=== PATIENT | female | born 1955 | race Caucasian/White ===

== ENCOUNTER → 2021-04-20 09:08 | Outpatient (CLI) | payer MEDICARE, SELFPAY ==
--- NOTE | 2021-04-20 09:11 | DI.CT.S_ITS ---
PROCEDURE: CT CHEST ABD PEL W CON INDICATIONS: Metastatic workup for breast cancer with positive nodes TECHNIQUE: After the administration of oral and intravenous contrast, axial sections acquired from the supraclavicular neck to the pubic symphysis. Coronal and sagittal reformats were performed. For radiation dose reduction, the following was used: automated exposure control, adjustment of mA and/or kV according to patient size. COMPARISON: [facility], US, US BIOPSY BREAST 1ST LESION LEFT, 04/05/2021, 13:44. [facility], US, US BIOPSY AXILLA, 04/05/2021, 13:44. FINDINGS: Image quality: Excellent. CHEST: Lower Neck: No enlarged lymph nodes. Thyroid: Within normal limits. Axillae: Enlarged left axillary node with a short axis diameter of 1 cm, (2/15). There is a biopsy clip within this node. A slightly inferior there is a prominent lymph node measuring 0.8 cm. No enlarged right axillary nodes. Chest Wall: Bilateral breast implants. Abnormal medial contour of the right implant consistent with rupture. Peripheral implant calcifications. Lungs and Airways: Tiny mucous plug in the right upper lobe. A few calcified granuloma. Pleura: No pneumothorax or pleural effusions. Heart: Heart size is within normal limits. Mild LAD coronary artery calcifications. No pericardial effusion. Thoracic Vessels: The aorta and pulmonary arteries demonstrate normal size. Mediastinum and Helen: No enlarged lymph nodes. Esophagus: No wall thickening. No hiatal hernia. ABDOMEN: Liver: Unremarkable. Gallbladder: Unremarkable. Biliary ducts: CBD is prominent measuring 0.9 cm but tapers distally. No intrahepatic biliary ductal dilatation. Pancreas: Unremarkable. Spleen: Unremarkable. Adrenal Glands: Unremarkable. Kidneys and Ureters: Unremarkable. Stomach and Bowel: Stomach, small bowel loops, and colon are unremarkable. Small duodenal diverticulum. Peritoneum: Irregular-shaped low-density collection anterior to the left psoas muscle measuring 16 Hounsfield units, (2/98). This spans an area of approximately 6.8 cm in diameter. Ventral Wall: No hernia. Abdominal Nodes: No retroperitoneal or mesenteric adenopathy by size criteria. Vessels: Aorta and inferior vena cava are normal in size. Prominent pelvic veins. PELVIS: Pelvic Organs: Anteverted uterus. Bladder: Unremarkable. Pelvic Nodes: No enlarged lymph nodes. Miscellaneous: No inguinal hernias are seen. Bones: Mild DDD. No suspicious lesion. IMPRESSION: 1. Enlarged left axillary lymph nodes x2. Biopsy-proven metastatic breast cancer in 1 of the nodes. 2. Abnormal area of fluid density in the left retroperitoneum anterior to the psoas muscle. This could represent a lymphocele. Less likely retroperitoneal fluid collection such as hematoma or confluent metastatic adenopathy or low-density metastasis. -This could be further evaluated with MRI of the abdomen and pelvis with IV contrast or PET/CT to exclude malignant process. 3. Prominent pelvic veins. This finding could be seen in multiparous women and/or pelvic congestion syndrome. 4. Ruptured right breast implant. Dictated by: Henri Daniel M.D. on 04/20/2021 at 11:59 Approved by: Henri Daniel M.D. on 04/20/2021 at 12:25
--- NOTE | 2021-04-20 09:11 | DI.NM.S_ITS ---
PROCEDURE: NM BONE SCAN WHOLE BODY RADIOPHARMACEUTICAL: 22.8 mCi Tc-99m MDP IV. INDICATIONS: breast cancer staging TECHNIQUE: Delayed whole-body scintigrams were obtained approximately 3-4 hours after intravenous injection of radiotracer. Anterior and posterior views were acquired from vertex to feet. Additional left and right oblique views of the thoracic cage were obtained. COMPARISON: [facility], CT, CT CHEST ABD PEL W CON, 04/20/2021, 10:54. FINDINGS: No lesions are identified in skull, sternum, clavicles, scapulae, ribs, bony pelvis, and visualized shafts of the long bones. Mild scoliosis. There are foci of increased uptake in the lumbar spine with distribution indistinguishable from degenerative disc and facet disease; early metastasis to spine could be obscured by degenerative changes. There are foci of increased periarticular activity involving shoulders, right greater than left, hips and SI joints, compatible with degenerative/arthritic changes. IMPRESSION: 1. No scintigraphic findings to suggest osseous metastasis. 2. Degenerative/arthritic changes as described. If clinically indicated, radiographic correlation would be helpful. Dictated by: Sofy Wright M.D. on 04/20/2021 at 17:17 Approved by: Sofy Wright M.D. on 04/20/2021 at 17:20
[2021-04-20 10:21] LABS: BUN Creatinine Ratio 23.3 (6-22); Blood Urea Nitrogen 17 mg/dL (7-17); Estimated Glomerular Filt Rate > 60.0 mL/min (>60)
== END ==
PROVIDERS: PCP Nurse Practitioner Family; Referring Provider Specialist; Visit Provider Specialist
DX: C50.912 Malignant neoplasm of unspecified site of left female breast (principal); C77.3 Secondary and unspecified malignant neoplasm of axilla and upper limb lymph nodes; Z01.812 Encounter for preprocedural laboratory examination; T85.43XA Leakage of breast prosthesis and implant, initial encounter
CPT/HCPCS: 36415; 71260; 74177; 78306; 82565; 84520; A9503

== ENCOUNTER → 2021-04-25 11:42 | Outpatient (CLI) | payer MEDICARE, SELFPAY ==
[2021-04-25 12:46] LABS: COVID19 -Nasal RAPID Negative (Negative)
== END ==
PROVIDERS: PCP Nurse Practitioner Family; Visit Provider Specialist
DX: Z01.812 Encounter for preprocedural laboratory examination (principal); Z20.822 Contact with and (suspected) exposure to COVID-19
CPT/HCPCS: 87635

== ENCOUNTER 2021-04-26 14:02 | Day surgery (SDC) | payer MEDICARE, SELFPAY ==
[2021-04-25 11:55] VITALS: BMI 18.5
--- NOTE | 2021-04-26 | DI.RAD.S_ITS ---
PROCEDURE: XR CHEST 1V INDICATIONS: POST-OP PORT-A-CATH PLACEMENT TECHNIQUE: One view of the chest was acquired. COMPARISON: None. FINDINGS: Surgical changes and devices: Right chest wall Port-A-Cath tip is in SVC. Bilateral breast implants are noted. Lungs and pleura: Lungs are clear. No pleural effusions or pneumothorax. Mediastinum: Mediastinal contours appear normal. Heart size is normal. Bones and chest wall: No suspicious bony lesions. Overlying soft tissues appear unremarkable. IMPRESSION: pathology. Right chest wall Port-A-Cath tip is in SVC. No acute cardiopulmonary Dictated by: Fritz Daly M.D. on 04/26/2021 at 18:10 Approved by: Fritz Daly M.D. on 04/26/2021 at 18:12
[2021-04-26 14:31] VITALS: BP 138/87; PULSE 70; RESP 16; TEMP 36.6; O2SAT 100; BMI 18.5
[2021-04-26] MEDS: LACTATED RINGERS 1,000 ML 42 ML IV (14:47)
[2021-04-26] MEDS: SCOPOLAMINE 1 PATCH TOP (15:02)
[2021-04-26] MEDS: ACETAMINOPHEN 325 MG TABLET 975 MG PO (15:03)
[2021-04-26] MEDS: GABAPENTIN 300 MG CAPSULE PO (15:04)
--- NOTE | 2021-04-26 15:57 | P.OP.PRE_ITS ---
Pre-operative Note COVID-19 COVID-19 status: Negative Result date/Date tested (Pos, Neg/Pending): 04/25/21 Interval Note History & Physical reviewed/Exam performed by Physician: Yes Changes to H&P: Yes H&P completed within 30 days and has changed as indicated here:: I have reviewed her MRI and the results of her pathology. She is about to undergo an extensive period of chemotherapy because she is HER2 Jess positive. MRI suggest possible 6 cm diameter mass in her left breast. Given the positive nodes already successfully biopsied in her left axilla neoadjuvant therapy would be standard of care. That is been discussed with her by her oncologist. She is here to place a Port-A-Cath. I have discussed the procedure with her. I discussed the nature of Port-A-Cath. I discussed placement neither under her collarbone her in her neck. Risks of bleeding, infection (which is an ongoing risk each time it is used) lung collapse clotting of the vein arm swelling and pulmonary embolism were all discussed with her. She appears to understand and wishes to proceed. I also advised her that because of the complexity of the issues involved with her (large tumor, skin involvement, ruptured pre prepped oral implants and the likelihood of tumor growing along the implant as well as tiny amounts of breast tissue) I think it would be best for her to be treated by a breast cancer fellowship trained surgeon. I offered to send her to a known associate but she has the knowledge of a surgeon at [facility] and would like to be referred there. She will obtain the name and either I or her oncologist can refer her there.
[2021-04-26] MEDS: CLINDAMYCIN 900 MG/50 ML PIGGYBACK 50 MG IV (16:21)
--- NOTE | 2021-04-26 16:44 | SUR.OPER ---
Supine on padded OR bed, head on gel donut, arms padded and tucked at sides, legs uncrossed, safety belt at thigh, tape over blanket over lower legs .
[2021-04-26] MEDS: HEPARIN 5,000 UNIT, SODIUM CHLORIDE 0.9% 50 ML IV (16:49)
[2021-04-26] MEDS: LIDOCAINE 2% INJ MDV 20 ML INJ (16:51)
[2021-04-26 17:22] VITALS: BP 130/81; PULSE 72; RESP 14; TEMP 36.2; O2SAT 96
[2021-04-26 17:28] VITALS: BP 127/69; PULSE 62; RESP 20; O2SAT 98
[2021-04-26 17:32] VITALS: BP 145/56; PULSE 60; RESP 16; O2SAT 98
--- NOTE | 2021-04-26 17:42 | PM.OP.1 ---
Operative Date/Time/Diagnoses Date of procedure: 04/26/21 Time of procedure: 17:42 Pre-op diagnosis: Metastatic breast cancer her 2 Jess positive Post-op diagnosis: same Procedure & Clinicians Procedure: Placement of right internal jugular Port-A-Cath Same procedure as scheduled: Yes Indications: Patient is a woman about to receive neoadjuvant treatment for a her 2 Jess positive metastatic breast cancer. I was asked to place a port for IV access for chemotherapy. Surgeon: Cal Amaro Click Yes if Unassisted: Yes Anesthesia Type: General Operative Notes Findings: Tip in the SVC. No evidence of pneumothorax. Closure Type: primary Specimen(s): none sent Prosthetic devices, grafts, tissues, transplants, or devices: Slim port Estimated Blood Loss (mL): 5 Blood products transfused: none Procedure in detail: Patient was placed supine on the operating room table underwent general LMA anesthesia. She was prepped and draped in the usual fashion. Breast cancers on the left and I have chosen to place the port in the right. A 22 gauge needle was used to insert into the internal jugular between the sternal and clavicular heads of the sternocleidomastoid. I then made an incision in this spot and attempted to insert the larger needle but was unable to do so. Both needles were removed and I used ultrasound to locate and reinsert the larger needle into the internal jugular vein. There was good blood return. Guidewire was passed the needle removed. Using fluoroscopy the wire appeared to be going in the appropriate anatomic location. Local anesthetic was achieved on the chest wall in the infraclavicular space. Transverse incision was made and carried through the subcu fat to the muscle. A pocket was created inferior to the incision. The port was attached to the catheter and the port was placed in the pocket. The catheter was passed using the enclosed metal dissector from the chest incision up to the neck incision. I then estimated the length of the catheter using a fluoroscopy. The catheter was transected. Dilator and introducer were then passed over the guidewire with fluoroscopic visualization. The dilator and guidewire were removed leaving the introducer in place. The catheter was passed through it. The introducer was peeled away leaving the catheter in good position in the SVC. The port was aspirated and flushed with heparinized saline. There was no difficulty doing either. The port was fixed to the chest wall with interrupted 2 0 silk sutures. The subQ was closed in the chest wall incision with a 3-0 Vicryl and skin was closed a running 4-0 Vicryl subcuticular stitch. The wound at the neck was closed with interrupted subcuticular stitches of 4-0 Vicryl. Mastisol and Steri-Strips were applied. Dressings were applied. The patient was awakened extubated taken recovery room good condition. Postprocedure chest x-ray shows the tip of the catheter in the SVC and no evidence of a pneumothorax. Complications: none Post-operative Condition: stable Disposition: PACU
[2021-04-26 17:44] VITALS: BP 137/65; PULSE 54; RESP 18; TEMP 36.6; O2SAT 100
[2021-04-26 18:08] VITALS: BP 141/78; PULSE 51; RESP 16; TEMP 36.7; O2SAT 100
[2021-04-26] MEDS: OXYCODONE IR 5 MG TABLET PO (18:23)
--- NOTE | 2021-04-26 19:19 | SUR.PHASEII ---
Late entry: Pt medicated with oxycodone for pain after applesauce tolerated. Dressing remained c/d/i. Assisted to BR, steady on feet. Left unit in stable condition.
--- NOTE | 2021-04-26 19:20 | SUR.PHASEI ---
Late entry: xray done, read by Dr. Amaro, he also spoke to pt at bedside. Pt denied pain at this time and denied need for pain meds. To OPD stable.
--- NOTE | 2021-04-26 19:23 | SUR.PHASEII ---
Pt brought to car, d/c instructions discussed with both pt and her , both voiced an understanding.
== END 2021-04-26 18:30 | disposition home or self-care (01) ==
PROVIDERS: PCP Nurse Practitioner Family; Referring Provider Specialist; Visit Provider Specialist
PROC: (CPT 36571; principal; 2021-04-26 15:45)
DX: Z45.2 Encounter for adjustment and management of vascular access device (principal); C50.912 Malignant neoplasm of unspecified site of left female breast; C77.9 Secondary and unspecified malignant neoplasm of lymph node, unspecified; Z17.0 Estrogen receptor positive status [ER+]; Z20.822 Contact with and (suspected) exposure to COVID-19
CPT/HCPCS: 36571; 36561; 71045; C1788; J1100; J1644; J2250; J2405; J2704

== ENCOUNTER 2021-04-29 11:54 | Inpatient (IN) | payer MEDICARE, SELFPAY ==
[2021-04-29] VITALS (10 sets, daily range): BP systolic 134–160; BP diastolic 69–93; PULSE 74–95; RESP 16–20; TEMP 36.3–37.1; O2SAT 93–100; BMI 19.1; BMI 18.7
--- NOTE | 2021-04-29 12:01 | DI.RAD.S_ITS ---
PROCEDURE: XR CHEST 2V INDICATIONS: Short of breath after R sided port placed 3 days ago TECHNIQUE: 2 views of the chest were acquired. COMPARISON: [facility], CT, CT CHEST ABD PEL W CON, 04/20/2021, 10:54. [facility], CR, XR CHEST 1V, 04/26/2021, 17:26. FINDINGS: Surgical changes and devices: Calcified mammoplasty implants are seen. There is a stable right-sided chest port. Lungs and pleura: There is a small to moderate right-sided pneumothorax, with a maximum pleural distance of 1.9 cm. No left-sided pneumothorax. The lungs otherwise appear clear. Mediastinum: Mediastinal contours are normal. Heart size is normal. Bones and chest wall: No suspicious bony abnormalities. Soft tissues appear unremarkable. IMPRESSION: Small to moderate right-sided pneumothorax. Note: Critical finding of pneumothorax discussed by telephone with Dr. Gann at 11:32 a.m. on April 29, 2021. Dictated by: Colton Self M.D. on 04/29/2021 at 11:30 Approved by: Colton Self M.D. on 04/29/2021 at 11:35
--- NOTE | 2021-04-29 12:51 | ED_ITS ---
HPI - General Adult General Chief complaint: Shortness of Breath/Dyspnea Stated complaint: Chemo Port, SOB Time Seen by Provider: 04/29/21 12:01 Source: patient Mode of arrival: Ambulatory Limitations: no limitations History of Present Illness HPI narrative: Patient is a 65-year-old female. Recent diagnosis of breast cancer. Had a port placed on Saturday. She states since that time she has had progressively worsening shortness of breath. Also some right-sided discomfort. She is scheduled to start chemotherapy next week. No prior underlying lung issues. Related Data Home Medications Medication Instructions Recorded Confirmed ascorbate calcium (vitamin C) 500 1,000 mg PO DAILY 04/13/21 04/26/21 mg tablet glucosamine HCl 500 mg tablet 1,000 mg PO DAILY 04/13/21 04/26/21 vitamin B complex 1 tab PO DAILY 04/13/21 04/26/21 alprazolam 0.25 mg tablet (Xanax) 0.25 mg PO BEDTIME PRN 04/18/21 04/26/21 trazodone 50 mg tablet 25 mg PO BEDTIME PRN 04/18/21 04/26/21 Previous Rx's Medication Instructions Recorded oxycodone 5 mg tablet 5 mg PO Q4H PRN #10 tab 04/26/21 Allergies Allergy/AdvReac Type Severity Reaction Status Date / Time Penicillins [PENICILLINS] Allergy Severe ANAPHYLAXIS Verified 04/29/21 12:02 Sulfa (Sulfonamide Allergy Intermediate RASH Verified 04/29/21 12:02 Antibiotics) [SULFA (SULFONAMIDE ANTIBIOTICS)] piroxicam Allergy Unknown FACIAL Verified 04/29/21 12:57 SWELLING, RASH, SKIN SLOUGHING OF HANDS&FEET Review of Systems Constitutional Constitutional: Denies fever(s) ENT Ears, Nose, Mouth, and Throat: Reports system reviewed and no additional comp laints, except as documented Cardiovascular Cardiovascular: Reports as per HPI and Reports system reviewed and no additional complaints, except as documented Respiratory Respiratory: Reports as per HPI and Reports system reviewed and no additional complaints, except as documented Gastrointestinal Gastrointestinal: Reports system reviewed and no additional complaints, except as documented Musculoskeletal Musculoskeletal: Reports system reviewed and no additional complaints, except as documented Integumentary/Breasts Skin/Breast: Reports system reviewed and no additional complaints, except as documented Neurologic Neurologic: Reports system reviewed and no additional complaints, except as documented Endocrine Endocrine: Reports system reviewed and no additional complaints, except as documented Hematologic/Lymphatic On Anticoagulants: No Allergic/Immunologic Allergic/Immunologic: Reports system reviewed and no additional complaints, except as documented Patient History Medical History Primary cancer of left breast with stage 2 lali metastasis per [place] [employer] on Cancer 7th edition (N2) Surgical History (Updated 04/25/21 @ 12:48 by Rafiq Dejesus MD) H/O section History of bilateral breast implants Hx of left breast biopsy (04/05/21) Status post delivery Family History (Updated 04/13/21 @ 16:00 by Jackeline Shepherd MA) Family/Other Cancer Social History marital status: number of children: 2 household members: spouse and children Smoking Status: Never smoker alcohol intake: current Smoking Status: Never smoker alcohol intake frequency: 0-2 drinks per day Substance Use Type: other Exam Initial Vital Signs Initial Vital Signs: Vital Signs Temperature 98.1 F 04/29/21 12:02 Pulse Rate 95 H 04/29/21 12:02 Respiratory Rate 16 04/29/21 12:02 Blood Pressure 154/82 H 04/29/21 12:02 Pulse Oximetry 98 04/29/21 12:02 Const General: cooperative and comfortable HENMT Head: normal to inspection and normocephalic Eyes General: appearance normal, both eyes and all related structures Neck Neck: normal visual inspection Chest Other: Surgical incisions right upper chest consistent with stated history of recent port placed Resp Effort & Inspection: normal respiratory effort, not labored and tachypneic Auscultation: diminished lung sounds on the right Cardio Rate: regular rate Rhythm: regular rhythm GI Inspection: normal to inspection Skin Other: Patient does have a macular papular rash systemically that she states started within the past 24 hours Neuro General: patient alert, patient awake, patient oriented x3 and moves all extremities Extrem General: normal to inspection and capillary refill normal Psych Appearance: grossly normal and well kempt Procedures Chest Tube Chest Tube 1: Chest Tube Location: right and anterior axillary line Chest Tube Prep: Yes betadine prep and sterile drapes applied Local Anesthetic: lidocaine 2% Amount of anesthesia used (mL): 10 Incision Made With: #11 blade Post Procedure: sutured to skin and sterile dressing applied Tube Drainage: none Post Procedure CXR?: Yes Patient Tolerated Procedure: Yes Progress: Harriett pneumothorax pigtail catheter Course Orders Ordered: ED Orders 04/29/21 12:01 XR chest 2V Stat 04/29/21 12:40 Basic Metabolic Panel Stat Complete Blood Count AUTO DIFF Stat 04/29/21 12:50 COVID19 - ADMIT ([employer] swab/PCR) Stat 04/29/21 13:16 XR chest 1V Stat Discontinued Medications Lidocaine HCl (Lidocaine 2% Inj Mdv) 1 ml SUBCUT NOW ONE Stop: 04/29/21 12:53 Last Admin: 04/29/21 13:32 Dose: 1 ml Documented by: LUIS EDUARDO Morphine Sulfate (Morphine 4 Mg/Ml Inj) 4 mg IV NOW ONE Stop: 04/29/21 13:34 Last Admin: 04/29/21 13:38 Dose: 4 mg Documented by: LUIS EDUARDO Vital Signs Vital signs: Vital Signs - 8 hr 04/29/21 12:02 04/29/21 13:00 Temperature 98.1 F Pulse Rate 95 H 80 Respiratory Rate 16 Blood Pressure 154/82 H 136/75 Pulse Oximetry 98 97 Medical Decision Making Medical Records Medical records reviewed: Yes I reviewed the patient's medical records. Lab Data Lab results reviewed: Yes I reviewed the patient's lab results. Result diagrams: 04/29/21 12:40 04/29/21 12:40 Labs: Lab Results 04/29/21 04/29/21 04/29/21 Range/Units 12:40 12:40 12:50 WBC 10.8 (4.5-11.0) X10^3/uL RBC 4.51 (4.0-5.2) X10^6/uL Hgb 14.1 (12.0-16.0) g/dL Hct 42.9 (36-46) % MCV 95.2 (80-100) fL MCH 31.2 (26-34) PG MCHC 32.7 (30-36) % RDW 13.1 (11.6-14.8) % Plt Count 297 (150-400) X10^3/uL Neut % (Auto) 79.3 H (50-75) % Lymph % (Auto) 10.2 L (25-40) % Piatt % (Auto) 9.3 (3-14) % Eos % (Auto) 0.8 L (2-4) % Baso % (Auto) 0.4 (0-2) % Neut # (Auto) 8600 H (5483-8333) /uL Lymph # (Auto) 1100 (7147-2290) /uL Piatt # (Auto) 1000 H (0-900) /uL Eos # (Auto) 100 (0-450) /uL Baso # (Auto) 0 (0-100) /uL Sodium 138 (137-145) mmol/L Potassium 4.0 (3.4-5.1) mmol/L Chloride 103 (98-107) mmol/L Carbon Dioxide 29 (22-32) mmol/L BUN 22 H (7-17) mg/dL Creatinine 0.71 (0.52-1.04) mg/dL Estimated GFR > 60.0 (>60) mL/min BUN/Creatinine Ratio 31.0 H (6-22) Glucose 88 (80-110) mg/dL Calcium 9.9 (8.4-10.2) mg/dL SARS-CoV-2 (PCR) Negative (Negative) Imaging Data Chest x-ray: Radiologist's Impression: [address] [address] XRay Report Signed Patient: Princess Kumar MR#: [id number] : 1955 Acct:[id number] Age/Sex: 65 / F Date of Service: 04/29/21 Loc: Accession Number: [id number] ?? Procedure: XR chest 2V Ordering Provider: Chriss Gann D.O. PROCEDURE:? XR CHEST 2V ? INDICATIONS:? Short of breath after R sided port placed 3 days ago ? TECHNIQUE:? 2 views of the chest were acquired.? ? COMPARISON:? [facility], CT, CT CHEST ABD PEL W CON, 04/20/2021, 10:54.? [facility], CR, XR CHEST 1V, 04/26/2021, 17:26. ? FINDINGS:? ? Surgical changes and devices:? Calcified mammoplasty implants are seen.? There is a stable right-sided chest port. ? Lungs and pleura:? There is a small to moderate right-sided pneumothorax, with a maximum pleural distance of 1.9 cm. ? No left-sided pneumothorax.? The lungs otherwise appear clear.? ? Mediastinum:? Mediastinal contours are normal.? Heart size is normal.? ? Bones and chest wall:? No suspicious bony abnormalities.? Soft tissues appear unremarkable.? ? ? IMPRESSION:? Small to moderate right-sided pneumothorax. ? Note:? Critical finding of pneumothorax discussed by telephone with Dr. Gann at 11:32 a.m. on April 29, 2021.? ? ? Dictated by: Cotlon Self M.D. on 04/29/2021 at 11:30 ? ? Approved by: Colton Self M.D. on 04/29/2021 at 11:35?? Post chest tube chest x-ray: Radiologist's Impression: [address] [address] XRay Report Signed Patient: Princess Kumar MR#: [id number] : 1955 Acct:[id number] Age/Sex: 65 / F Date of Service: 04/29/21 Loc: ED Accession Number: [id number] ?? Procedure: XR chest 1V Ordering Provider: Chriss Gann D.O. PROCEDURE:? XR CHEST 1V ? INDICATIONS:? post chest tube placement ? TECHNIQUE:? One view of the chest was acquired.? ? COMPARISON:? [facility], , XR CHEST 2V, 04/29/2021, 11:57. ? FINDINGS:? ? Surgical changes and devices:? Right chest wall port.? Right chest tube is well position. ? Lungs and pleura:? Lungs are clear.? No pleural effusions or pneumothorax.? Previously seen pneumothorax has resolved.? Right basilar atelectasis. ? Mediastinum:? Mediastinal contours appear normal.? Heart size is normal.? ? Bones and chest wall:? No suspicious bony lesions.? Overlying soft tissues appear unremarkable.? ? IMPRESSION:? Chest tube appears well positioned.? Previously seen pneumothorax has resolved. ? ? Dictated by: Rikki Lloyd M.D. on 04/29/2021 at 13:36 ? ? Approved by: Rikki Lloyd M.D. on 04/29/2021 at 13:37?? MDM Narrative Medical decision making narrative: Patient not in respiratory distress but was tachypneic upon arrival. Not hypoxic. Initial chest x-ray shows right-sided pneumothorax most likely from the port placement a couple days ago. She did give consent and a right-sided harriett pneumothorax catheter was placed with resolution of the pneumothorax on repeat chest x-ray. Discussed the case with Dr. Miranda on-call for General surgery who will admit for further evaluation treatment. Discussed the admission with the patient. She expressed understanding and agreement. Discharge Plan Departure Patient Disposition: Admitted As Inpatient Clinical Impression: Pneumothorax Admit Date/Time: 04/29/21 14:03 Admit Provider: Chiqui Miranda
--- NOTE | 2021-04-29 13:16 | DI.RAD.S_ITS ---
PROCEDURE: XR CHEST 1V INDICATIONS: post chest tube placement TECHNIQUE: One view of the chest was acquired. COMPARISON: [facility], , XR CHEST 2V, 04/29/2021, 11:57. FINDINGS: Surgical changes and devices: Right chest wall port. Right chest tube is well position. Lungs and pleura: Lungs are clear. No pleural effusions or pneumothorax. Previously seen pneumothorax has resolved. Right basilar atelectasis. Mediastinum: Mediastinal contours appear normal. Heart size is normal. Bones and chest wall: No suspicious bony lesions. Overlying soft tissues appear unremarkable. IMPRESSION: Chest tube appears well positioned. Previously seen pneumothorax has resolved. Dictated by: Rikki Lloyd M.D. on 04/29/2021 at 13:36 Approved by: Rikki Lloyd M.D. on 04/29/2021 at 13:37
[2021-04-29 13:22] LABS: Add Manual Diff / Slide Review NO; Basophils Absolute Auto 0 /uL (0-100); Basophils Percent Auto 0.4 % (0-2); Eosinophils Absolute Auto 100 /uL (0-450); Eosinophils Percent Auto 0.8 % (2-4); Hematocrit 42.9 % (36-46); Hemoglobin 14.1 g/dL (12.0-16.0); Lymphocytes Absolute Auto 1100 /uL (1100-4500); Lymphocytes Percent Auto 10.2 % (25-40); Mean Corpuscular HGB Conc 32.7 % (30-36); Mean Corpuscular Hemoglobin 31.2 PG (26-34); Mean Corpuscular Volume 95.2 fL (80-100); Monocytes Absolute Auto 1000 /uL (0-900); Monocytes Percent Auto 9.3 % (3-14); Neutrophils Absolute Auto 8600 /uL (1500-7000); Neutrophils Percent Auto 79.3 % (50-75); Platelet Count 297 X10^3/uL (150-400); Red Blood Cell Count 4.51 X10^6/uL (4.0-5.2); Red Cell Distribution Width 13.1 % (11.6-14.8); White Blood Cell Count 10.8 X10^3/uL (4.5-11.0)
[2021-04-29 13:28] LABS: Blood Urea Nitrogen 22 mg/dL (7-17); Calcium 9.9 mg/dL (8.4-10.2); Carbon Dioxide 29 mmol/L (22-32); Chloride 103 mmol/L (98-107); Estimated Glomerular Filt Rate > 60.0 mL/min (>60); Glucose 88 mg/dL (80-110); HEMOLYSIS < 15 (0-50); Sodium 138 mmol/L (137-145)
[2021-04-29] MEDS: LIDOCAINE 2% INJ MDV 1 ML SUBCUT (13:32)
[2021-04-29] MEDS: MORPHINE 4 MG/ML INJ IV (13:38)
[2021-04-29 14:02] LABS: COVID19 - ADMIT (NP swab/PCR) Negative (Negative)
[2021-04-29] MEDS: HYDROMORPHONE 0.5 MG INJ IV (14:55)
[2021-04-29] MEDS: DOCUSATE 100 MG CAPSULE PO ×2 (16:31→21:17)
[2021-04-29] MEDS: HYDROCODONE/ACET 5/325 TABLET 1 TAB PO (16:34)
[2021-04-29] MEDS: ACETAMINOPHEN 325 MG TABLET 650 MG PO (17:56)
[2021-04-29] MEDS: OXYCODONE IR 5 MG TABLET PO (19:05)
[2021-04-29] MEDS: HEPARIN 5,000 UNIT/ML VIAL 5000 UNIT SUBCUT (21:17)
[2021-04-29] MEDS: PANTOPRAZOLE DR 20 MG TABLET PO (21:18)
[2021-04-29] MEDS: OXYCODONE IR 10 MG TABLET PO (23:18)
[2021-04-29] MEDS: ONDANSETRON 4 MG/2 ML INJ IV (23:18)
[2021-04-29] MEDS: SODIUM CHLORIDE 0.9% FLUSH 10 ML IV (23:20)
--- NOTE | 2021-04-30 00:44 | PC.NURSE ---
Addendum entered by Regina Farias R.N. 04/30/21 03:11: Up to bathroom and complains again of 7/10 back pain so medicated with oxycodone. Now also complains of increased itching and agreeable to having MD called. Dr Miranda informed of rash and itchiness, patient states she woke with rash yesterday morning and had it prior to coming to ER. Patient is concerned about taking anything that may interfere with her starting chemo this coming week. See new order for Benadryl. Original Note: Patient is alert and oriented although anxious with many questions. Breath sounds diminished throughout right more than left. Respirations shallow as patient having difficulty taking deep breaths related to complaint of back pain. At time of assessment patient was medicated with oxycodone and discussed need to control pain in order to ensure able to take deep breaths to prevent further complications; is currently asleep. On continuous pulse oximetry and is on RA with sat of 97%. Chest tube dressing intact and tube to low suction with no drainage or leaks noted. HRR but BP elevated at 141/93 and noted to trend high possible related to pain and/or anxiety. Denied nausea. BT present and abdomen is soft. Denied any dysuria, frequency or urgency with urination. Is able to move self in bed but has been needing SBA when getting out of bed related to chest tube and states she feels shaky when up. Diffuse red, raised rash noted on back, chest, abdomen and upper/inner thighs; states she has some itching but declines offer to contact MD for Benadryl order. Wearing bilateral calf SCD's. Fall risk score is moderate but patient has called for assistance appropriately and verbalizes agreement to continue to do so so alarm is not in use.
[2021-04-30] MEDS: OXYCODONE IR 5 MG TABLET 15 MG PO (02:43)
[2021-04-30] MEDS: diphenhydrAMINE 25 MG TABLET 50 MG PO ×3 (03:16→14:12)
[2021-04-30] MEDS: OXYCODONE IR 5 MG TABLET PO (05:47)
--- NOTE | 2021-04-30 06:00 | DI.RAD.S_ITS ---
PROCEDURE: XR CHEST 1V INDICATIONS: Pneumothorax TECHNIQUE: One view of the chest was acquired. COMPARISON: [facility], CR, XR CHEST 2V, 04/29/2021, 11:57. [facility], CR, XR CHEST 1V, 04/26/2021, 17:26. [facility], CR, XR CHEST 1V, 04/29/2021, 13:16. FINDINGS: Surgical changes and devices: A right-sided pleural drain is seen. A stable right-sided chest port is seen. Rim calcified breast implants are seen. Lungs and pleura: No remaining pneumothorax is seen. Low lung volumes are noted. This causes a crowded appearance to the lung markings and limits evaluation. Mediastinum: Mediastinal contours appear normal. Heart size is normal. Bones and chest wall: No suspicious bony lesions. Age-appropriate bony degenerative changes are seen. Overlying soft tissues appear unremarkable. IMPRESSION: Right-sided pleural drain, without a remaining pneumothorax seen on this image. Dictated by: Colton Self M.D. on 04/30/2021 at 7:07 Approved by: Colton Self M.D. on 04/30/2021 at 7:08
[2021-04-30 07:26] VITALS: BP 139/82; PULSE 91; RESP 16; TEMP 36.8; O2SAT 97
[2021-04-30] MEDS: OXYCODONE IR 10 MG TABLET PO (08:54)
[2021-04-30] MEDS: DOCUSATE 100 MG CAPSULE PO (08:54)
[2021-04-30] MEDS: HEPARIN 5,000 UNIT/ML VIAL 5000 UNIT SUBCUT (08:55)
[2021-04-30] MEDS: CALCIUM CARB/VIT D3 500/200 TABLET 1 EACH PO (10:15)
[2021-04-30 10:16] VITALS: O2SAT 93
[2021-04-30] MEDS: SODIUM CHLORIDE 0.9% FLUSH 10 ML IV (10:16)
--- NOTE | 2021-04-30 11:05 | CM.DANOTE ---
DCP: Case received, EMR reviewed and met with patient. Introduced self and role. Was able to obtain information from patient regarding her baseline activity status prior to hospitalization. DCP assessment completed with information currently available. Patient is a 65 year old female who admitted yesterday afternoon to the care of the hospitalist team. PCP: Dr. Saldaña. Payer: confirmed: [employer] [facility]. Patient came to the hospital via private vehicle secondary to having increased shortness of breath. Patient just had port inserted for chemo, secondary to her having stage 2 breast CA. She is to be starting treatment this Saturday. She was diagnosed with a small to moderate right sided pneumothorax. Chest tube was inserted, and now, has resolved. Will need to be checked while tube in place to ensure that her lung inflates. Met with patient in her room. She is pleasant, and resides on [address]. She is independent at her baseline. She indicated, she wants to make sure she is discharged so she can make her chemo appointment. She confirmed that she resides with her spouse, Jimbo, who is supportive. P: DCP to continue to follow for any needs. Patient should be able to go home when she is deemed medically stable. Millie Case RN/Web Site Developer Discharge Planning/Care Management CM Discharge Assessment Start: 04/30/21 11:02 Freq: Status: Active Protocol: Document 04/30/21 11:03 (Rec: 04/30/21 11:04 [id number]) Discharge Planning Assessment Assigned Certified Dental Assistant Millie Case RN/Web Site Developer Advance Directives? Yes Advance Directives on File No History Provided By Patient,Medical Record Prior Living Arrangements House Household Members spouse,children Type of transporation used prior to Drives own vehicle admit Independent with ADL's Yes Is patient alert and oriented? Yes Caregiver for Another No Barriers to Discharge No Comment Patient has good support system with spouse. Discharge Plan Home Transportation Arrangement Spouse Referrals Initiated None needed Whiteboard Updated in Patient Room with Yes name and ext. # of Certified Dental Assistant Review Status In Process Next Review Type Continued Stay Review
--- NOTE | 2021-04-30 12:00 | DI.RAD.S_ITS ---
PROCEDURE: XR CHEST 1V INDICATIONS: chest tube to water seal TECHNIQUE: One view of the chest was acquired. COMPARISON: [facility], CR, XR CHEST 1V, 04/29/2021, 13:16. [facility], CR, XR CHEST 2V, 04/29/2021, 11:57. [facility], CR, XR CHEST 1V, 04/26/2021, 17:26. [facility], CR, XR CHEST 1V, 04/30/2021, 5:53. FINDINGS: Surgical changes and devices: A right-sided pleural drain is seen in place. There is a stable right-sided chest port. Rim calcified breast implants are seen. Lungs and pleura: There is a trivial residual right-sided pneumothorax. The lungs otherwise are unremarkable. Mediastinum: Mediastinal contours appear normal. Heart size is normal. Bones and chest wall: No suspicious bony lesions. Age-appropriate bony degenerative changes are seen. Overlying soft tissues appear unremarkable. IMPRESSION: Trivial residual right-sided pneumothorax. Sided pleural drain seen in place. Dictated by: Colton Self M.D. on 04/30/2021 at 11:33 Approved by: Colton Self M.D. on 04/30/2021 at 11:34
--- NOTE | 2021-04-30 12:40 | P.HP_ITS ---
History of Present Illness History of Present Illness Date Patient Seen: 04/30/21 Time Patient Seen: 12:40 Chief complaint: Chemo Port, SOB Narrative: s/p Right IJ port placement with symptomatic PTX. Seen in ED and Suman tube was placed. C/o SOB and pleuritic pain. Also has a rash on trunk. Patient History Medical History Primary cancer of left breast with stage 2 lali metastasis per [place] Joint Committee on Cancer 7th edition (N2) Surgical History (Updated 04/25/21 @ 12:48 by Rafiq Dejesus MD) H/O section History of bilateral breast implants Hx of left breast biopsy (04/05/21) Status post delivery Family & Social History Family History (Updated 04/13/21 @ 16:00 by Jackeline Shepherd MA) Family/Other Cancer Social History: household members spouse,children Prior Living Arrangements House Safety & Behavioral: Feels Safe in Current Yes Environment Been Physically Hurt or No Threatened By a Person Suicidal Ideation Description None Suicide Plan Description No Plan Tobacco & Substance use: Tobacco type smokeless tobacco Smoking Status Never smoker alcohol intake current alcohol intake frequency 0-2 drinks per day Substance Use Type other Meds Home Medications and Allergies Home Medications Medication Instructions Recorded Confirmed Type glucosamine HCl 500 mg tablet 1,000 mg PO DAILY 04/13/21 04/29/21 History vitamin B complex 1 tab PO DAILY 04/13/21 04/29/21 History alprazolam 0.25 mg tablet (Xanax) 0.25 mg PO BEDTIME PRN 04/18/21 04/29/21 History trazodone 50 mg tablet 25 mg PO BEDTIME PRN 04/18/21 04/29/21 History calcium carb,cit ER 600 mg-vit D3 1 tab PO DAILY 04/29/21 04/29/21 History 12.5 mcg (500 unit) tablet,ext.rel Allergies Allergy/AdvReac Type Severity Reaction Status Date / Time Penicillins [PENICILLINS] Allergy Severe ANAPHYLAXIS Verified 04/29/21 12:02 Sulfa (Sulfonamide Allergy Intermediate RASH Verified 04/29/21 12:02 Antibiotics) [SULFA (SULFONAMIDE ANTIBIOTICS)] piroxicam Allergy Unknown FACIAL Verified 04/29/21 12:57 SWELLING, RASH, SKIN SLOUGHING OF HANDS&FEET Exam Vital Signs (past 8 hours): - 04/30/21 07:26 04/30/21 10:16 Temperature 98.2 F Pulse Rate 91 H Respiratory Rate 16 Blood Pressure 139/82 Pulse Oximetry 97 93 Oxygen Delivery Method Room Air Oxygen Flow Rate 0 Const General: cooperative and comfortable Nutritional Appearance: thin Orientation: alert and oriented x3 HENMT Head: normal to inspection Ears: hearing grossly normal bilaterally Nose: external nose normal Face and sinus: normal facial exam Eyes General: appearance normal, both eyes and all related structures Sclera: sclerae normal Neck Neck: trachea midline Chest Chest: normal inspection of the chest Resp Effort & Inspection: normal respiratory effort and able to speak in complete sentences Auscultation: clear to auscultation bilaterally Cardio Rate: regular rate Rhythm: regular rhythm GI Inspection: normal to inspection Palpation: soft Skin Rashes: rashes noted (trunk and bilateral groin) Trauma: no lacerations or abrasions Neuro General: patient alert and patient oriented x3 Cognition: normal cognition Extrem General: normal to inspection Psych Attitude: cooperative Judgment: judgment good Objective Labs Result Diagrams: 04/29/21 12:40 04/29/21 12:40 Labs: Laboratory Results - last 24 hr 04/29/21 04/29/21 04/29/21 12:40 12:40 12:50 WBC 10.8 RBC 4.51 Hgb 14.1 Hct 42.9 MCV 95.2 MCH 31.2 MCHC 32.7 RDW 13.1 Plt Count 297 Neut % (Auto) 79.3 H Lymph % (Auto) 10.2 L [place] % (Auto) 9.3 Eos % (Auto) 0.8 L Baso % (Auto) 0.4 Neut # (Auto) 8600 H Lymph # (Auto) 1100 [place] # (Auto) 1000 H Eos # (Auto) 100 Baso # (Auto) 0 Sodium 138 Potassium 4.0 Chloride 103 Carbon Dioxide 29 BUN 22 H Creatinine 0.71 Estimated GFR > 60.0 BUN/Creatinine Ratio 31.0 H Glucose 88 Calcium 9.9 SARS-CoV-2 (PCR) Negative Assessment & Plan Assessment & Plan narrative: Iatrogenic PTX on Right CXR on water seal shows no PTX. Chest tube removed. Plan: repeat CXR in 3 hours and discharge to hotel with if stable. Time Spent With Patient Critical Care time: I spent a total of [] minutes of critical care time on this patient's care today; this time is exclusive of procedural time.
--- NOTE | 2021-04-30 12:47 | DI.RAD.S_ITS ---
PROCEDURE: XR CHEST 1V INDICATIONS: right chest tube removal TECHNIQUE: One view of the chest was acquired. COMPARISON: [facility], CR, XR CHEST 1V, 04/30/2021, 5:53. [facility], CR, XR CHEST 1V, 04/29/2021, 13:16. [facility], CR, XR CHEST 2V, 04/29/2021, 11:57. [facility], CR, XR CHEST 1V, 04/26/2021, 17:26. [facility], CR, XR CHEST 1V, 04/30/2021, 11:59. FINDINGS: Surgical changes and devices: The previously seen right pleural drain has been removed. There is a stable right-sided chest port and stable calcified mammoplasty implants. Lungs and pleura: No residual pneumothorax is seen. Low lung volumes are noted, from extra poonam technique. This causes a crowded appearance to the lung markings and limits evaluation. Mediastinum: Mediastinal contours appear normal. Heart size is normal. Bones and chest wall: No suspicious bony lesions. Degenerative changes are seen, which are worst involving the right shoulder. Overlying soft tissues appear unremarkable. IMPRESSION: No residual pneumothorax. Dictated by: Colton Self M.D. on 04/30/2021 at 14:10 Approved by: Colton Self M.D. on 04/30/2021 at 14:11
[2021-04-30 14:39] VITALS: O2SAT 96
--- NOTE | 2021-04-30 14:41 | PC.NURSE ---
Pt resting comfortably up in chair. Lungs are clear upon auscultation. No resp distress. Room air sat is 96%.
--- NOTE | 2021-04-30 15:55 | P.DS_ITS ---
History of Present Illness History of Present Illness Date Patient Seen: 04/30/21 Time Patient Seen: 15:55 Chief complaint: Chemo Port, SOB Narrative: s/p Right IJ port placement with symptomatic PTX. Seen in ED and Suman tube was placed. C/o SOB and pleuritic pain. Also has a rash on trunk. Discharge Providers Provider Date of admission: 04/29/21 14:03 Discharge Date: 04/30/21 Primary care physician: LEROY Fleming Discharge provider: Chiqui Miranda MD Summary Hospital Course Discharge Diagnosis: left pneumothorax Hospital Course: Chest tube elevated the PTX, no PTX after chest tube removed. Status at Discharge Cognitive/behavioral status at discharge: at baseline, oriented Time Spent with Patient Time spent: Less than 30 minutes Exam Vital Signs (past 8 hours): - 04/30/21 10:16 04/30/21 14:39 Pulse Oximetry 93 96 Oxygen Delivery Method Room Air Oxygen Flow Rate 0 Narrative Exam Narrative: Unchanged from the morning exam. equal breath sounds. Objective Labs Result Diagrams: 04/29/21 12:40 04/29/21 12:40 [facility] Medical History Primary cancer of left breast with stage 2 lali metastasis per [place] Joint Committee on Cancer 7th edition (N2) Surgical History (Updated 04/25/21 @ 12:48 by Rafiq Dejesus MD) H/O section History of bilateral breast implants Hx of left breast biopsy (04/05/21) Status post delivery Family History (Updated 04/13/21 @ 16:00 by Jackeline Shepherd MA) Family/Other Cancer Social History marital status: number of children: 2 household members: spouse and children Smoking Status: Never smoker alcohol intake: current Discharge Assessment & Plan Assessment and Plan Assessment: Left PTX resolved with Chest tube. Plan of Treatment: discharge to hot with with follow up Oncology and surgery as arrange previously. Discharge Plan Discharge Plan Patient Disposition: Home Discharge orders & Medications Prescriptions: Continued vitamin B complex Tablet 1 tab PO DAILY RF: 0 glucosamine HCl 500 mg tablet 1,000 mg PO DAILY RF: 0 trazodone 50 mg Tablet 25 mg PO BEDTIME PRN (Reason: Anxiety) RF: 0 alprazolam [Xanax] 0.25 mg Tablet 0.25 mg PO BEDTIME PRN (Reason: Anxiety) RF: 0 calcium carb and citrate-vitD3 600 mg-12.5 mcg (500 unit) Tablet Extended Release 1 tab PO DAILY RF: 0 Follow up/Referrals: Evelina Saldaña ARNP [Primary Care Provider] - Diet/Activity/Treatments Diet: Diet as Tolerated Activity: No heavy lifting or contact sports for 2 weeks. Skin/Wound/Dressing Care Dressing: remove dressing tomorrow Discharge Data Primary Care Provider: Evelina Saldaña
[2021-04-30 16:27] VITALS: BP 144/89; PULSE 92; RESP 16; TEMP 37.2; O2SAT 97
== END 2021-04-30 17:00 | disposition home or self-care (01) | DRG 200 ==
LOC: ED 13:45 → AC 04-30 08:13
PROVIDERS: Admitting Provider Surgery; Emergency Provider Emergency Medicine; PCP Nurse Practitioner Family; Referring Provider Emergency Medicine; Visit Provider Surgery
DX: J95.811 Postprocedural pneumothorax (principal); C77.9 Secondary and unspecified malignant neoplasm of lymph node, unspecified; R21 Rash and other nonspecific skin eruption; Z20.822 Contact with and (suspected) exposure to COVID-19; Z45.2 Encounter for adjustment and management of vascular access device; C50.912 Malignant neoplasm of unspecified site of left female breast; Z17.0 Estrogen receptor positive status [ER+]
CPT/HCPCS: 32551; 36415; 36561; 71045; 71046; 80048; 85025; 87635; 94762; 96374; 99238; 99284; 99285; C1788; C9803; J1100; J1170; J1644; J2250; J2270; J2405; J2704

== ENCOUNTER → 2021-05-01 07:50 | Outpatient (CLI) | payer MEDICARE, SELFPAY ==
[2021-04-29 16:41] VITALS: BMI 18.7
--- NOTE | 2021-05-01 07:51 | DI.ECHO.S_ITS ---
[facility] +---------+ : : [address] : : : : [id number] : : : : Phone: [phone]+ Echocardiogram Report + + :Name: MARIANELA WICK Study Date: 05/01/2021 Height: 65 in : :[facility] ReadingLocation: Weight: 115 lb : : Gender: Female BSA: 1.6 m2 : :: 1955 Age: 65 yrs BP: 126/86 mmHg: :Reason For Study: CANCER : :Ordering Physician: RENÉ, : :NORBERTO Performed By: Ramesh Arroyo : :Referring: NORBERTO MERRITT : + + Interpretation Summary Normal left ventricle size with ejection fraction 55-60%. Normal right ventricle and both atria. No significant valvular abnormality. Procedure: The study quality was technically adequate. A two-dimensional transthoracic echocardiogram with color flow and Doppler was performed. There is no prior echocardiogram noted for this patient. Left Ventricle: The left ventricle is normal in size and wall thickness. The ejection fraction is estimated to be 55-60%. There are no focal wall motion abnormalities. Diastolic parameters suggest probable normal left ventricular diastolic function and normal filling pressures. Right Ventricle: The right ventricle grossly appears normal in size with probable normal systolic function. Atria: Both atria are normal in size. There is no Doppler evidence for an interatrial shunt. Mitral Valve: The mitral valve leaflets appear mildly thickened, but open well. There is no mitral regurgitation noted. Aortic Valve: The aortic valve is normal in structure and function. No aortic regurgitation is present. Tricuspid Valve: The tricuspid valve is normal in structure and function. There is mild tricuspid regurgitation. The right ventricular systolic pressure is estimated to be at least 32 mmHg based on an estimated right atrial pressure of 3 mm Hg. Pulmonic Valve: The pulmonic valve is not well visualized. Great Vessels: The aortic root is normal size. The dimensions of the ascending aorta are normal. The IVC is of normal diameter and collapses greater than 50% with a sniff. This suggests a low right atrial pressure of 3 mm Hg. Pericardium/ Pleura There is no pericardial effusion. There is no pleural effusion. MMode/2D Measurements & Calculations LVIDd: 3.9 cm LVOT diam: 1.9 cm LVIDs: 2.6 cm Ao root diam: 3.0 cm FS: 33.3 % asc Aorta Diam: 3.0 cm IVSd: 0.80 cm LVPWd: 0.80 cm LV patton. diameter/BSA (cm/m^2): 2.5 LV sys. diameter/BSA (cm/m^2): 1.7 LA dimension: 2.1 cm RA long axis: 3.4 cm LA A4 area: 9.3 cm2 TAPSE_phl: 1.9 cm Doppler Measurements & Calculations Ao V2 max: 116.0 cm/sec LVOT Max Jostin: 90.7 cm/sec Ao V2 mean: 83.5 cm/sec LV V1 max P.3 mmHg Ao max P.0 mmHg LV V1 VTI: 16.1 cm Ao mean P.0 mmHg KERWIN(I,D): 2.3 cm2 Ao V2 VTI: 20.0 cm KERWIN(V,D): 2.2 cm2 sev ratio: 0.81 KERWIN indexed to BSA (cm^2/m^2): 1.5 MV E max jostin: 59.1 cm/sec TR max jostin: 270.0 cm/sec MV A max jostin: 56.1 cm/sec TR max P.2 mmHg MV E/A: 1.1 Med Peak E' Jostin: 9.1 cm/sec E/E' med: 6.5 Lat Peak E' Jostin: 11.2 cm/sec E/E' lat: 5.3 E/e' average: 5.9 MV dec time: 0.25 sec SV(LVOT): 45.6 ml AV VR_phl: 0.78 KERWIN(VTI)/BSA_phl: 1.5 MV P1/2t-pr_phl: 74.0 msec Electronically signed by: Sulma Salas on Reading Physician:05/01/2021 09:55 AM
== END ==
PROVIDERS: PCP Nurse Practitioner Family; Referring Provider Internal Medicine Medical Oncology; Visit Provider Internal Medicine Medical Oncology
DX: C50.912 Malignant neoplasm of unspecified site of left female breast (principal); C77.9 Secondary and unspecified malignant neoplasm of lymph node, unspecified
CPT/HCPCS: 93306

== ENCOUNTER → 2021-08-21 08:41 | Outpatient (CLI) | payer MEDICARE, SELFPAY ==
[2021-05-02 16:16] VITALS: BMI 18.7
--- NOTE | 2021-08-21 08:44 | DI.MRI.S_ITS ---
BREAST MRI OF BOTH BREASTS: 08/21/2021 CLINICAL: Breast cancer. PROCEDURE: MR BREAST BI WO/W CON INDICATIONS: restaging post chemo TECHNIQUE: The patient was placed prone in a dedicated breast imaging coil. Precontrast axial STIR and 3D FLASH without fat saturation sequences were obtained. Both before and after bolus injection of contrast, sequential 1-minute axial 3D FLASH with fat saturation sequences for 3 time points, with subtraction images and maximum intensity projections (MIP's) generated. Delayed sagittal FLASH images with fat saturation were also obtained. 20 cc ProHance IV contrast utilized. Computer-aided detection, including computer algorithm analysis of MRI image data for lesion detection and characterization, pharmacokinetic analysis, with further physician review for interpretation, was performed. COMPARISON: [facility], CT, CT CHEST ABD PEL W CON, 04/20/2021, 10:54. [facility], MG, MG DIAGNOSTIC BILATERAL IMPLANT DIGITAL BREAST TOMOSYNTHESIS, 06/14/2020, 10:41. [facility], MG, SCREENING BILAT W/IMPLANTS MAMMO, 08/23/2016, 13:00. [facility], US, US BIOPSY BREAST 1ST LESION LEFT, 04/05/2021, 13:44. [facility], MG, MG DIAGNOSTIC BILATERAL IMPLANT DIGITAL BREAST TOMOSYNTHESIS, 03/28/2021, 13:37. Outside Facility, , MRI BREAST BILATERAL W / WO CONTRAST, 04/22/2021, 18:15. [facility], MT, MT PET CT FUSION SKULL 2 THIGH, 07/05/2021, 9:44. FINDINGS: Image quality: Excellent. There is minimal background parenchymal enhancement. Right breast: Prepectoral silicone implant with evidence of intracapsular rupture. No mass or suspicious enhancement. Left breast: Prepectoral silicone implant with evidence of intracapsular rupture. Susceptibility artifact from the biopsy clip in the upper-outer quadrant of the left breast, (). There is associated segmental non mass enhancement in the upper outer quadrant which measures approximately 2.1 x 0.8 x 0.6 cm, ( and ), previously remeasured 3 x 1.4 x 1.1 cm on MRI breast 04/22/2021. This is in close proximity to the implant and skin. Kinetic analysis demonstrates slow initial phase and persistent delayed phase, (previously reported to demonstrate washout kinetics). Miscellaneous: Enlarged left axillary node measuring 1 cm, (13/136), previously 1.3 cm. There is susceptibility artifact within this node. Slightly inferior left axillary node measuring 0.6 cm, (13/121), previously 0.9 cm. No new or enlarging nodes. Right chest wall port. IMPRESSION: KNOWN BIOPSY PROVEN MALIGNANCY 1. Left breast: Upper outer quadrant segmental non mass enhancement is mildly decreased in size. This is in keeping with breast cancer treatment response. 2. Left axillary level 1 nodes x2 are minimally decreased in size. No new or enlarging nodes. 3. Right breast: No mass or suspicious enhancement. 4. Bilateral silicone implant intracapsular rupture. BIRADS 6. COMMENT: The imaging literature indicates that a negative contrast breast MRI examination has a high sensitivity and a moderate specificity for detecting and excluding invasive carcinomas to a detection threshold of 3-5 mm; nonetheless, appropriate clinical and mammographic follow-up are recommended. MRI is not sensitive for detecting DCIS (ductal carcinoma in situ) and may not detect large invasive neoplasms that show only minimal enhancement such as mucinous carcinoma. If there are suspicious calcifications or clinically worrisome palpable masses, then biopsy should still be considered. Invasive neoplasms can be hidden by co-existent and benign enhancement caused by mastitis, hormone therapy effects, radiation therapy, , and recent biopsy or surgery. False positive examinations can occur in a number of circumstances, including breasts that have recently been subject to invasive procedures and those that contain atypical ductal hyperplasia, hormonally stimulated glandular tissue, fat necrosis, or radial scars. Dictated by: Henri Daniel M.D. on 08/21/2021 at 19:27 This exam was interpreted at Station ID: [id number]. Electronically Signed By: Henri Daniel M.D. slc/:08/21/2021 20:06:27 ACR BI-RADS Category 6: Known biopsy proven malignancy [id number]
== END ==
PROVIDERS: PCP Nurse Practitioner Family; Referring Provider Internal Medicine Medical Oncology; Visit Provider Internal Medicine Medical Oncology
DX: C50.912 Malignant neoplasm of unspecified site of left female breast (principal); T85.43XA Leakage of breast prosthesis and implant, initial encounter; C77.3 Secondary and unspecified malignant neoplasm of axilla and upper limb lymph nodes; Z98.890 Other specified postprocedural states
CPT/HCPCS: 77049; A9579

== ENCOUNTER → 2022-03-28 12:22 | Outpatient (CLI) | payer MEDICARE, SELFPAY ==
[2021-05-02 16:16] VITALS: BMI 18.7
--- NOTE | 2022-03-28 12:23 | DI.ECHO.S_ITS ---
[place] [facility]---------+ [facility] +---------+ : : [address] : : : : [id number] : : : : Phone: [phone] +---------+ Echocardiogram Report + + :Name: MARIANELA WICK Study Date: 03/28/2022 Height: 66 in : :[facility] ReadingLocation: Weight: 130 lb : : Gender: Female BSA: 1.7 m2 : :: 1955 Age: 66 yrs BP: 165/94 mmHg: :Reason For Study: BREAST CANCER TREATMENT : :Ordering Physician: RENÉ, : :NORBERTO Performed By: Mara Camacho : :Referring: NORBERTO MERRITT : + + Interpretation Summary 1) Normal left ventricular thickness, size, wall motion, and systolic function (EF 55-60%). Left ventricular global longitudinal strain average is -18.5%. 2) Normal right ventricular size and function. 3) No significant valvular abnormalities. 4) Compared to the Echo done 05/01/2021, no significant change. Procedure: A two-dimensional transthoracic echocardiogram with color flow and Doppler was performed. The study quality was technically adequate. Comparison is made with the echocardiogram of 05/01/2021. The patient was in sinus rhythm with heart rates between 60-75 bpm during the exam. Left Ventricle: The left ventricle is normal in size and wall thickness. The ejection fraction is estimated to be 55-60%. Left ventricular global longitudinal strain average is -18.5%. Left ventricular systolic function appears normal without focal wall motion abnormalities. Diastolic parameters suggest probable normal left ventricular diastolic function and normal filling pressures. Right Ventricle: The right ventricle is normal in size and function. Atria: The left atrium is mildly dilated. Right atrial size is normal. There is no Doppler evidence for an interatrial shunt. Mitral Valve: The mitral valve is normal in structure and function. There is no mitral regurgitation noted. Aortic Valve: The aortic valve is trileaflet. The aortic valve opens well. There is no aortic valve stenosis. No aortic regurgitation is present. Tricuspid Valve: The tricuspid valve is normal in structure and function. There is trace tricuspid regurgitation. The right ventricular systolic pressure is estimated to be at least 26 mmHg based on an estimated right atrial pressure of 3 mm Hg. Pulmonic Valve: The pulmonic valve leaflets are thin and pliable; valve motion is normal. There is mild pulmonic regurgitation. Great Vessels: The aortic root is normal size. The dimensions of the ascending aorta are normal. The IVC is of normal diameter and collapses greater than 50% with a sniff. This suggests a low right atrial pressure of 3 mm Hg. Pericardium/ Pleura There is no pericardial effusion. There is no pleural effusion. MMode/2D Measurements & Calculations LVIDd: 4.5 cm LVOT diam: 2.0 cm LVIDs: 3.3 cm Ao root diam: 3.2 cm FS: 26.0 % asc Aorta Diam: 3.4 cm EPSS: 1.0 cm Ao Arch Diam (Prox Trans): 2.8 cm IVSd: 0.85 cm LVPWd: 0.89 cm LV patton. diameter/BSA (cm/m^2): 2.7 LV sys. diameter/BSA (cm/m^2): 2.0 LA A2 area: 18.2 cm2 RA long axis: 4.8 cm LA A4 area: 16.8 cm2 RA area: 14.8 cm2 LA length (vol): 4.7 cm RA vol: 38.9 ml LA vol: 55.9 ml RA : 23.4 ml/m2 LA vol index: 33.6 ml/m2 IVC diam: 0.96 cm RVD1 (basal): 3.5 cm RVD2 (mid): 3.1 cm TAPSE: 2.2 cm Doppler Measurements & Calculations Ao V2 max: 119.6 cm/sec LVOT Max Jostin: 88.0 cm/sec Ao V2 mean: 76.0 cm/sec LV V1 max P.1 mmHg Ao max P.7 mmHg LV V1 VTI: 18.1 cm Ao mean P.7 mmHg KERWIN(I,D): 3.0 cm2 Ao V2 VTI: 19.4 cm KERWIN(V,D): 2.4 cm2 sev ratio: 0.93 KERWIN indexed to BSA (cm^2/m^2): 1.8 MV E max jostin: 69.7 cm/sec TR max jostin: 237.9 cm/sec MV A max jostin: 62.5 cm/sec TR max P.6 mmHg MV E/A: 1.1 PA V2 max: 93.0 cm/sec Med Peak E' Jostin: 7.3 cm/sec PA V2 mean: 67.8 cm/sec E/E' med: 9.5 PA mean P.0 mmHg Lat Peak E' Jostin: 7.6 cm/sec PA pr(Accel): 36.2 mmHg E/E' lat: 9.2 E/e' average: 9.4 MV dec time: 0.22 sec SV(OT): 58.1 ml Reading Physician:03:18 PM
[2022-06-05 09:41] LABS: Add Manual Diff / Slide Review NO; Basophils Absolute Auto 100 /uL (0-100); Basophils Percent Auto 1.1 % (0-2); Eosinophils Absolute Auto 200 /uL (0-450); Eosinophils Percent Auto 3.3 % (2-4); Hematocrit 38.6 % (36-46); Hemoglobin 13.2 g/dL (12.0-16.0); Lymphocytes Absolute Auto 2000 /uL (1100-4500); Lymphocytes Percent Auto 40.6 % (25-40); Mean Corpuscular HGB Conc 34.1 % (30-36); Mean Corpuscular Hemoglobin 31.4 PG (26-34); Monocytes Absolute Auto 600 /uL (0-900); Monocytes Percent Auto 12.1 % (3-14); Neutrophils Absolute Auto 2200 /uL (1500-7000); Neutrophils Percent Auto 42.9 % (50-75); Platelet Count 243 X10^3/uL (150-400); Red Cell Distribution Width 14.2 % (11.6-14.8)
[2022-06-05 09:52] LABS: Alanine Aminotransferase 37 IU/L (<35); Albumin 4.4 g/dL (3.5-5.0); Albumin Globulin Ratio 1.4 (1.0-2.8); Alkaline Phosphatase 80 U/L (38-126); Aspartate Aminotransferase 47 IU/L (14-36); Bilirubin Total 0.7 mg/dL (0.2-1.3); Blood Urea Nitrogen 21 mg/dL (7-17); Calcium 9.9 mg/dL (8.4-10.2); Carbon Dioxide 29 mmol/L (22-32); Chloride 101 mmol/L (98-107); Estimated Glomerular Filt Rate > 60 mL/min (>60); Globulin 3.2 g/dL (1.7-4.1); Glucose 101 mg/dL (80-110); HEMOLYSIS < 15 (0-50); Potassium 4.1 mmol/L (3.4-5.1); Sodium 139 mmol/L (137-145); Total Protein 7.6 g/dL (6.3-8.2)
== END ==
PROVIDERS: PCP Nurse Practitioner Family; Referring Provider Internal Medicine Medical Oncology; Visit Provider Internal Medicine Medical Oncology
DX: I37.1 Nonrheumatic pulmonary valve insufficiency (principal); C50.912 Malignant neoplasm of unspecified site of left female breast; Z17.0 Estrogen receptor positive status [ER+]
CPT/HCPCS: 80053; 85025; 93306

== ENCOUNTER → 2022-07-03 09:08 | Outpatient (CLI) | payer MEDICARE, SELFPAY ==
[2021-05-02 16:16] VITALS: BMI 18.7
--- NOTE | 2022-07-03 09:08 | DI.ECHO.S_ITS ---
[facility] +---------+ [facility] +---------+ : : [address] : [address] : : : : [id number] : : : : Phone: [phone] : [phone] +---------+ Echocardiogram Report + + :Name: MARIANELA WICK Study Date: 07/03/2022 Height: 65.5 in : :[facility] ReadingLocation: Weight: 130 lb : : Gender: Female BSA: 1.7 m2 : :: 1955 Age: 66 yrs BP: 155/101 mmHg: :Reason For Study: MONITORING EJECTION FRACTION WHILE ON : :CHEMOTHERAPY : :Ordering Physician: RENÉ, : :NORBERTO Performed By: Mara Camacho : :Referring: NORBERTO MERRITT : + + Interpretation Summary 1) Normal left ventricular size and thickness with low normal systolic function (EF 50-55%). Left ventricular global longitudinal strain average is - 17.1%. 2) Normal right ventricular size and function. 3) Compared to the Echo done 03/28/2022, LVEF has decreased slightly from 55- 60% to 50-55% on this study. Procedure: A two-dimensional transthoracic echocardiogram with color flow and Doppler was performed. The study quality was technically adequate. Comparison is made with the echocardiogram of 03/28/2022. The patient was in sinus rhythm with heart rates between 61-71 bpm during the exam. Left Ventricle: The left ventricle is normal in size and wall thickness. The ejection fraction is estimated to be 50-55%. Left ventricular global longitudinal strain average is -17.1%. Previous strain of -18.5 on 03/28/2022. There are no focal wall motion abnormalities. Right Ventricle: The right ventricle is normal in size and function. Atria: The left atrium is mildly dilated. Right atrial size is normal. Great Vessels: The IVC is of normal diameter and collapses greater than 50% with a sniff. This suggests a low right atrial pressure of 3 mm Hg. Pericardium/ Pleura There is no pericardial effusion. There is no pleural effusion. MMode/2D Measurements & Calculations LVIDd: 5.0 cm LA A2 area: 20.2 cm2 LVIDs: 3.4 cm LA A4 area: 21.6 cm2 FS: 30.9 % LA length (vol): 5.4 cm IVSd: 0.68 cm LA vol: 68.9 ml LVPWd: 0.66 cm LA vol index: 41.6 ml/m2 LV patton. diameter/BSA (cm/m^2): 3.0 LV sys. diameter/BSA (cm/m^2): 2.1 RA long axis: 5.4 cm RVD1 (basal): 3.5 cm RA area: 17.7 cm2 RVD2 (mid): 2.8 cm RA vol: 49.6 ml TAPSE: 2.1 cm RA : 30.0 ml/m2 IVC diam: 1.2 cm Reading Physician:03:16 PM
== END ==
PROVIDERS: PCP Family Medicine; Referring Provider Internal Medicine Medical Oncology; Visit Provider Internal Medicine Medical Oncology
DX: Z92.21 Personal history of antineoplastic chemotherapy; C50.912 Malignant neoplasm of unspecified site of left female breast; C77.3 Secondary and unspecified malignant neoplasm of axilla and upper limb lymph nodes; Z17.0 Estrogen receptor positive status [ER+]; Z79.811 Long term (current) use of aromatase inhibitors
CPT/HCPCS: 93307; 93356

== ENCOUNTER → 2023-02-21 10:47 | Outpatient (CLI) | payer MEDICARE, SELFPAY ==
[2021-05-02 16:16] VITALS: BMI 18.7
--- NOTE | 2023-02-21 11:06 | DI.DEXA.S_ITS ---
Bone Density Report Name: MARIANELA WICK Age: 67 Sex: Female Ethnicity: White Date of : 1955 Indication: postmenopausal; screening for osteoporosis; Referring Provider: MARITZA MORALES Study: Bone densitometry was performed. Exam Date: February 21, 2023 Accession number: [id number] Bone Density: Region BMD T-score Z-score Classification AP Spine(L1, L2) 0.939 -0.4 1.5 Normal Femoral Neck (Left) 0.628 -2.0 -0.3 Osteopenia Total Hip (Left) 0.689 -2.1 -0.7 Osteopenia Femoral Neck (Right) 0.669 -1.6 0.1 Osteopenia Total Hip (Right) 0.720 -1.8 -0.4 Osteopenia Total Hip Mean 0.705 -2.0 -0.6 Osteopenia Total Forearm (Left) 0.445 -2.5 -0.6 Osteoporosis 1/3 Forearm (Left) 0.577 -1.9 0.0 Osteopenia UD Forearm (Left) 0.342 -1.7 -0.3 Osteopenia World Health Organization criteria for BMD impression classify patients as: Normal (T-score at or above -1.0), Osteopenia (T-score between -1.0 and -2.5), or Osteoporosis (T-score at or below -2.5). 10-year Fracture Risk(1): Major Osteoporotic Fracture 10% Hip Fracture 1.8% Reported Risk Factors: [place] (), Neck BMD=0.628, BMI=21.8 (1) FRAX(R) Version 3.08. Fracture probability calculated for an untreated patient. Fracture probability may be lower if the patient has received treatment. Impression: The patient has low bone mass, based on the Left Total Hip T-score. The patient has an estimated ten-year risk of hip fracture of 1.8% and an estimated ten-year risk of major fracture of 10%, based on the WHO FRAX algorithm. Discussion: BONE DENSITY IS LOW AT ONE OR MORE SKELETAL SITES. This patient's lowest T-score is low at one or more skeletal sites. It meets the World Health Organization's (WHO) criteria for ?low bone mass? (T-score between -1.0 and -2.5). The patient's 10-year risk of fracture as calculated by FRAX is less than the threshold where pharmacological therapy is recommended by the National Osteoporosis Foundation (NOF). However, all treatment decisions require clinical judgment and consideration of individual patient factors, including patient preferences, comorbidities, previous drug use, risk factors not captured in the FRAX model (e.g., frailty, falls, vitamin D deficiency, increased bone turnover, interval significant decline in bone density) and possible under or overestimation of fracture risk by FRAX. The patient should follow a healthful lifestyle (good nutrition with adequate calcium and vitamin D, and appropriate weight-bearing exercise). Follow-Up: Consider repeating this study in 2 to 3 years to reassess this patient's status, or sooner if there is some new clinical indication. Reported by: NASIM SOSA M.D. on 02/21/2023 11:45:00 AM.
== END ==
PROVIDERS: PCP Family Medicine; Referring Provider Internal Medicine Hematology & Oncology; Visit Provider Internal Medicine Hematology & Oncology
DX: Z79.811 Long term (current) use of aromatase inhibitors (principal); Z13.820 Encounter for screening for osteoporosis; Z78.0 Asymptomatic menopausal state; M85.852 Other specified disorders of bone density and structure, left thigh
CPT/HCPCS: 77080